=== PATIENT | female | born 1990 | race Caucasian/White ===

== ENCOUNTER 2017-11-26 11:13 | Inpatient (IN) | payer MEDICAID ==
[2017-11-26] MEDS ORDERED: MISOPROSTOL 200 MCG TAB PR (11:30)
[2017-11-26] MEDS ORDERED: METHYLERGONOVINE 0.2 MG INJ IM (11:30)
[2017-11-26] MEDS ORDERED: IBUPROFEN 600 MG TAB PO (11:30)
[2017-11-26] MEDS ORDERED: LIDOCAINE 1% (MPF) 30 ML INJ INJ (11:30)
[2017-11-26] MEDS ORDERED: OXYTOCIN 30 UNITS/LR 500 ML IV (11:30)
[2017-11-26] MEDS ORDERED: CARBOPROST 250 MCG INJ IM (11:30)
[2017-11-26] MEDS: LACTATED RINGER'S 1,000 ML IV ×2 (11:44→19:28)
[2017-11-26 12:03] LABS: ADD MAN DIFF? NO
[2017-11-26 12:27] LABS: WHITE BLOOD COUNT 7.8 10^3/ul (4.8-10.8)
[2017-11-26 12:27] LABS: BASOPHILS % 0.5 % (0.0-2.0); EOSINOPHILS # 0.1 10^3/ul (0.0-0.5); EOSINOPHILS % 0.8 % (0.0-7.0); HEMATOCRIT 38.5 % (37.0-47.0); HEMOGLOBIN 13.3 g/dl (12.0-16.0); LYMPHOCYTES # 1.6 10^3/ul (0.8-2.9); LYMPHOCYTES % 20.1 % (15.0-51.0); MEAN CORPUSCULAR HEMOGLOBIN 29.8 pg (29.0-33.0); MEAN CORPUSCULAR HGB CONC 34.5 g/dl (32.0-37.0); MEAN CORPUSCULAR VOLUME 86.1 fl (82.0-101.0); MEAN PLATELET VOLUME 11.4 fl (7.4-10.4); MONOCYTE # 0.5 10^3/ul (0.3-0.9); MONOCYTES % 6.9 % (0.0-11.0); NEUTROPHIL # 5.5 10^3/ul (1.6-7.5); NEUTROPHILS % 71.2 % (39.0-77.0); PLATELET COUNT 256 10^3/UL (140-415); RED BLOOD COUNT 4.47 10^6/ul (4.20-5.40); RED CELL DISTRIBUTION WIDTH 13.7 % (11.5-14.5)
[2017-11-26 12:33] LABS: INR 0.88; PT RATIO 0.9
[2017-11-26 12:34] LABS: PARTIAL THROMBOPLASTIN TIME 31.5 Sec (25.0-35.0)
[2017-11-26 13:18] LABS: HEPATITIS B SURFACE ANTIGEN NEGATIVE (NEGATIVE)
[2017-11-26] MEDS: DINOPROSTONE 10 MG VAG SUPP VAG (14:37)
[2017-11-26 14:58] LABS: RAPID PLASMA REAGIN NONREACTIVE (NR)
[2017-11-26] MEDS: BUTORPHANOL 2 MG INJ IV (19:29)
[2017-11-27] MEDS: LACTATED RINGER'S 1,000 ML IV ×4 (01:39→16:05)
[2017-11-27] MEDS: BUTORPHANOL 2 MG INJ IV (01:45)
[2017-11-27] MEDS ORDERED: FENTAnyl 2MCG/ML-ROPIV 0.2% 100 ML (15:01)
[2017-11-27] MEDS ORDERED: OXYTOCIN 30 UNITS/LR 500 ML IV (15:30)
[2017-11-27] MEDS: OXYTOCIN 30 UNITS/LR 500 ML IV (15:45)
[2017-11-27] MEDS ORDERED: NALOXONE (0.4 MG/ML) INJ IV (17:00)
[2017-11-27] MEDS ORDERED: DIPHENHYDRAMINE 50 MG INJ IV (17:00)
[2017-11-27] MEDS ORDERED: ONDANSETRON 4 MG INJ IV (17:00)
[2017-11-27] MEDS ORDERED: KETOROLAC 30 MG INJ IV (17:00)
[2017-11-27] MEDS ORDERED: HYDROmorphONE 0.5 MG/0.5 ML SYG IV ×2 (17:00)
[2017-11-27] MEDS ORDERED: MINERAL OIL LIGHT 10 ML VIAL TOP (22:00)
[2017-11-27] MEDS: FENTAnyl 2MCG/ML-ROPIV 0.2% 100 ML BAG EPI (23:18)
[2017-11-28] MEDS: LACTATED RINGER'S 1,000 ML IV ×2 (00:33→03:49)
[2017-11-28] MEDS ORDERED: AMPICILLIN 2 GM/NS (PMX) 100 ML (04:10)
[2017-11-28] MEDS: AMPICILLIN 2 GM/NS (PMX) 100 ML IVPB (04:10)
[2017-11-28] MEDS: OXYTOCIN 30 UNITS/LR 500 ML IV (04:38)
[2017-11-28] MEDS ORDERED: MISOPROSTOL 200 MCG TAB PR (05:00)
[2017-11-28] MEDS ORDERED: ACETAMINOPHEN 325 MG TAB PO ×2 (05:00→05:30)
[2017-11-28] MEDS ORDERED: ZOLPIDEM 5 MG TAB PO (05:00)
[2017-11-28] MEDS ORDERED: DIPHENHYDRAMINE 25 MG CAP PO (05:00)
[2017-11-28] MEDS ORDERED: HYDROCODONE/APAP (5/325) TAB PO (05:00)
[2017-11-28] MEDS ORDERED: CARBOPROST 250 MCG INJ IM (05:00)
[2017-11-28] MEDS ORDERED: ONDANSETRON 4 MG INJ IV (05:00)
[2017-11-28] MEDS ORDERED: OXYTOCIN 30 UNITS/LR 500 ML IV (05:00)
[2017-11-28] MEDS ORDERED: GENTAMICIN 120 MG/NS (PMX) 100 ML IVPB (05:00)
[2017-11-28] MEDS: IBUPROFEN 600 MG TAB PO ×4 (05:52→23:45)
[2017-11-28] MEDS: SENNA/DOCUSATE NA (8.6MG/50MG) TAB PO ×2 (09:21→20:34)
[2017-11-28] MEDS: LANOLIN 7 GM TUBE TOP (09:21)
[2017-11-28] MEDS: WITCH HAZEL/GLYCERIN PAD PR (12:09)
[2017-11-28] MEDS: CEPHALEXIN 500 MG CAP PO ×3 (15:53→23:44)
[2017-11-29] MEDS: CEPHALEXIN 500 MG CAP PO ×4 (05:54→23:43)
[2017-11-29] MEDS: IBUPROFEN 600 MG TAB PO ×4 (05:54→23:43)
[2017-11-29] MEDS: SENNA/DOCUSATE NA (8.6MG/50MG) TAB PO ×2 (09:12→21:10)
[2017-11-29 11:59] LABS: ADD MAN DIFF? NO
[2017-11-29 12:08] LABS: BASOPHILS % 0.2 % (0.0-2.0); EOSINOPHILS # 0.1 10^3/ul (0.0-0.5); EOSINOPHILS % 0.8 % (0.0-7.0); HEMATOCRIT 30.1 % (37.0-47.0); HEMOGLOBIN 10.4 g/dl (12.0-16.0); LYMPHOCYTES # 1.6 10^3/ul (0.8-2.9); LYMPHOCYTES % 8.8 % (15.0-51.0); MEAN CORPUSCULAR HEMOGLOBIN 30.3 pg (29.0-33.0); MEAN CORPUSCULAR HGB CONC 34.6 g/dl (32.0-37.0); MEAN CORPUSCULAR VOLUME 87.8 fl (82.0-101.0); MEAN PLATELET VOLUME 11.1 fl (7.4-10.4); MONOCYTE # 0.7 10^3/ul (0.3-0.9); NEUTROPHIL # 15.4 10^3/ul (1.6-7.5); NEUTROPHILS % 85.5 % (39.0-77.0); PLATELET COUNT 189 10^3/UL (140-415); RED BLOOD COUNT 3.43 10^6/ul (4.20-5.40); RED CELL DISTRIBUTION WIDTH 13.9 % (11.5-14.5)
[2017-11-30] MEDS: CEPHALEXIN 500 MG CAP PO ×3 (05:46→18:00)
[2017-11-30] MEDS: IBUPROFEN 600 MG TAB PO ×3 (05:46→18:00)
[2017-11-30 09:41] LABS: ADD MAN DIFF? NO
[2017-11-30 09:43] LABS: WHITE BLOOD COUNT 12.4 10^3/ul (4.8-10.8)
[2017-11-30 09:43] LABS: BASOPHILS % 0.3 % (0.0-2.0); EOSINOPHILS # 0.2 10^3/ul (0.0-0.5); EOSINOPHILS % 1.5 % (0.0-7.0); HEMOGLOBIN 10.4 g/dl (12.0-16.0); LYMPHOCYTES # 2.3 10^3/ul (0.8-2.9); LYMPHOCYTES % 18.7 % (15.0-51.0); MEAN CORPUSCULAR HEMOGLOBIN 30.4 pg (29.0-33.0); MEAN CORPUSCULAR HGB CONC 34.7 g/dl (32.0-37.0); MEAN CORPUSCULAR VOLUME 87.7 fl (82.0-101.0); MEAN PLATELET VOLUME 11.3 fl (7.4-10.4); MONOCYTE # 0.5 10^3/ul (0.3-0.9); MONOCYTES % 3.6 % (0.0-11.0); NEUTROPHIL # 9.3 10^3/ul (1.6-7.5); NEUTROPHILS % 75.3 % (39.0-77.0); PLATELET COUNT 223 10^3/UL (140-415); RED BLOOD COUNT 3.42 10^6/ul (4.20-5.40); RED CELL DISTRIBUTION WIDTH 13.6 % (11.5-14.5)
[2017-11-30] MEDS: SENNA/DOCUSATE NA (8.6MG/50MG) TAB PO (12:35)
== END 2017-11-30 18:00 | disposition home or self-care (01) | DRG 775 ==
LOC: PP1 11-28 06:43 → L-D 11:13
PROVIDERS: Obstetrics & Gynecology
PROC: 10D07Z6 Extraction of Products of Conception, Vacuum, Via Natural or Artificial Opening (ICD-10-PCS; principal; 2017-11-26 11:00)
PROC: 0KQM0ZZ Repair Perineum Muscle, Open Approach (ICD-10-PCS; 2017-11-26 11:00)
PROC: 3E033VJ Introduction of Other Hormone into Peripheral Vein, Percutaneous Approach (ICD-10-PCS; 2017-11-26 11:00)
PROC: 3E0P7VZ Introduction of Hormone into Female Reproductive, Via Natural or Artificial Opening (ICD-10-PCS; 2017-11-26 11:00)
DX: O63.9 Long labor, unspecified (principal); O76 Abnormality in fetal heart rate and rhythm complicating labor and delivery; Z3A.40 40 weeks gestation of pregnancy; Z37.0 Single live birth; O70.1 Second degree perineal laceration during delivery; O69.81X0 Labor and delivery complicated by cord around neck, without compression, not applicable or unspecified
CPT/HCPCS: 62319; 76815; 85025; 85610; 85730; 86592; 86850; 86900; 86901; 87070; 87340; 88307; 99464